=== PATIENT | male | born 1965 | race Caucasian/White ===

== ENCOUNTER 2020-07-07 16:58 | IRF | payer OTHER, SELFPAY ==
[2020-07-07 16:40] VITALS: BP 149/73; PULSE 58; RESP 16; TEMP 36.3; O2SAT 100
--- NOTE | 2020-07-07 16:40 | ADMGEN ---
This patient, Daniel Singh, was admitted to [facility] Room 218-01. Patient/family oriented to hospital policies and general routines including ID bracelet, bed and alarms, visiting hours, pain management, procedures, bathroom and other care routines, personal items, smoking policy, room service/diet, and visiting hours. Information on how to activate the Rapid Response Team has been discussed. Patient/Family are encouraged to report perceived risks to care and to ask questions if they do not understand what they are told or what they should do. Arrived with via private auto alert and oriented to person place and time at [id number]
[2020-07-07 17:13] LABS: Glucose Point of Care 163 (65-105)
[2020-07-07 17:22] VITALS: BMI 23.3
--- NOTE | 2020-07-07 17:26 | WPDREHABHP ---
H&P: HPI History of Present Illness Date/Time: 0HISTORY OF PRESENT ILLNESS: bilateral acute lacunar infarcts and right below-knee amputation The patient's primary rehab impairment category is stroke The etiologic diagnosis is bilateral acute lacunar infarcts and right below-knee amputation I saw this patient [id number] on July 07, 2020] The patient is a patient is a 54-year-old gentleman with past medical history of hypertension, diabetes, with peripheral neuropathy and diabetic retinopathy. Sleep apnea. Diastolic congestive heart failure with ejection fraction of 65-70%, history of osteomyelitis of the right lower extremity, right foot ulcers, peripheral vascular disease, syncope, recent CVA in May 09, presented to [facility] on June 28 after follow-up with Dr. Meyers. Patient had been admitted to [facility] from May 03 through with syncope and was found to have a subacute CVA. He did not receive rehab. The patient underwent angiogram with Dr. Meyers on 06/22/2020 balloon angioplasty to the right middle popliteal artery , right distal popliteal artery, right proximal peroneal artery, and right distal posterior tibialis artery. At the follow-up appointment the patient was noted to have an infection to the right lower extremity with bloody discharge and new skin ulceration. Patient was directly admitted for below-knee amputation and IV antibiotics. Cardiology was consulted for followup non STEMI following a right below-knee amputation. Patient had a mildly elevated troponin and was noted to have an abnormal stress test from March 06, 2020. Echo on 07/01/2020 showed no wall motion abnormality and ejection fraction of 65-70%. Postoperatively the patient experienced new onset dysarthric, head CT scan was negative for hemorrhage. MRI of the brain demonstrated punctate effusions abnormalities in bilateral hemispheres compatible with acute lacunar strokes. Neurology was consulted and the patient was placed on aspirin Plavix and add a statin. Dr. Rosas reports clinical presentation is not supportive a demyelinating process like multiple sclerosis and recommend stroke rehabilitation. The patient has significant stroke risk factors including hypertension diabetes. Carotid ultrasound was unremarkable on May 04 2020. The patient's hospitalization was significant for hypertension electrolyte imbalance leukocytosis acute postoperative pain acute blood loss anemia requiring transfusion, urinary retention with Diaz removal on July 03, 2020, hypoglycemia, hyperglycemia. The patient is nonweightbearing through the right lower extremity and an amputee Shield is in place. Patient will not discharge to rehab on DVT prophylaxis per the Ryder position. Currently patient is only on aspirin. COVID: The patient has not traveled outside the [place] or had contact with someone who is ill that his travel outside the [place] in the past 21 days. The patient has not traveled to an area of the [place] that is experiencing known transmission of the Coronavirus and has not had close personal contact with anyone that has. Patient does not have a fever. The patient is not experiencing lower respiratory illness symptoms. COVID test on 07/07 was negative. Therapy was initiated at the acute care facility and the patient transferred to us from [facility] on 07/07/2020 FALLS OR SURGERIES: The patient has had major surgeries in the 100 days prior to admission. They had 2 falls in the past year. They had falls with injury in the past year. PAST MEDICAL HISTORY: abnormal cardiovascular stress test, bilateral carpal tunnel syndrome, congestive heart failure, diabetes mellitus, right foot ulcer, hypertension, peripheral neuropathy, peripheral vascular disease, diabetic neuropathy, diabetic retinopathy, sleep apnea, CVA. PAST SURGICAL HISTORY: Right 3rd 4th 5th toe amputation on the right on March 07
[2020-07-07 17:30] VITALS: PULSE 58; RESP 16; O2SAT 100
[2020-07-07] MEDS: HYDROcodone/acetaminophen (*CRX) 5-325 MG TABLET 1 TAB PO (18:17)
[2020-07-07] MEDS: DOCUSATE SODIUM 100 MG CAPSULE PO (20:38)
[2020-07-07] MEDS: FAMOTIDINE 20 MG TABLET PO (20:38)
[2020-07-07] MEDS: INSULIN GLARGINE (*BKC) 100 UNITS/ML 45 UNITS SUB-Q (20:42)
[2020-07-07 20:52] VITALS: PULSE 64
[2020-07-07] MEDS: carvediloL 3.125 MG TABLET PO (20:52)
[2020-07-07 21:02] VITALS: BP 135/67; PULSE 54; RESP 18; TEMP 36.6; O2SAT 100
[2020-07-07 21:28] LABS: Glucose Point of Care 260 (65-105)
[2020-07-07 22:21] VITALS: BP 135/67; PULSE 58
[2020-07-07] MEDS: hydrALAZINE 10 MG TABLET PO (22:21)
[2020-07-08 04:50] LABS: Basophils Absolute Auto 0.1 K/mm3 (0.0-0.1); Basophils Percent Auto 0.9 % (0.2-1.2); Eosinophils Absolute Auto 0.2 K/mm3 (0-0.3); Hematocrit 29.6 % (42.0-52.0); Hemoglobin 9.6 g/dL (14.0-18.0); Immature Granulocyte Absolute 0.12 K/mm3 (0.00-0.031); Immature Granulocyte Percent A 1.6 % (0-0.5); Lymphocytes Absolute Auto 2.34 K/mm3 (0.9-3.2); Lymphocytes Percent Auto 30.4 % (18.3-44.2); Mean Corpuscular HGB Conc 32.4 g/dl (32-36); Mean Corpuscular Hemoglobin 26.7 pg (26-34); Mean Corpuscular Volume 82.2 fl (80-100); Mean Platelet Volume 9.2 fl (7.4-10.4); Monocytes Percent Auto 13.5 % (2.6-8.5); Neutrophils Absolute Auto 3.9 K/mm3 (1.3-6.7); Neutrophils Percent Auto 50.6 % (45.5-73.1); Platelet Count Result 489 k/mm3 (150-375); Red Cell Distribution Width 14.3 % (11.5-14.5); White Blood Count 7.7 K/mm3 (4.5-10.0)
[2020-07-08 04:57] LABS: Hemoglobin A1C 6.7 % (<5.7)
[2020-07-08 05:01] LABS: Anion Gap 5 mmol/L (8-16); Blood Urea Nitrogen 24 mg/dL (9-20); Calcium 8.7 mg/dL (8.4-10.2); Carbon Dioxide 31 mmol/L (22-30); Chloride 102 mmol/L (98-107); Estimated CRCL calculation 55 ml/min; Estimated Glomerular Filt Rate 49; Glucose 188 mg/dL (75-110); Potassium 3.6 mmol/L (3.4-5.0); Sodium 138 mmol/L (137-145)
[2020-07-08 05:26] VITALS: BP 139/68; PULSE 57; RESP 16; TEMP 36.2; O2SAT 99
[2020-07-08] MEDS: hydrALAZINE 10 MG TABLET PO ×3 (06:06→21:51)
[2020-07-08 06:47] LABS: Glucose Point of Care 162 (65-105)
--- NOTE | 2020-07-08 08:25 | WPDNEURORHBP ---
Subjective Date/time seen: 07/08/20 08:25 Patient seen on morning rounds. Patient states that he slept well. Patient states stump as essentially no pain. Review of Systems Review of Systems: All systems reviewed & are unremarkable except as noted in HPI and below Exam Narrative: Exam Narrative: Head is normocephalic mild facial asymmetry is noted during fatigue. Speech is less dysarthric from yesterday. Mood is good. Heart rate and rhythm is regular. Lungs are clear to auscultation. Abdomen is soft nontender. Bilateral upper extremity strength are 4-5 left lower extremity strength is 4-5 right stump is in a splint. Labs have been reviewed BUN and creatinine slightly elevated. Mild anemia noted. Objective Data Vital Signs Vital Signs: Vital Signs - 24 hr 07/07/20 16:40 07/07/20 17:30 07/07/20 20:52 Temperature 36.3 C L Pulse Rate 58 L 58 L 64 Respiratory Rate 16 16 Blood Pressure 149/73 H Pulse Oximetry 100 100 07/07/20 21:02 07/07/20 22:21 07/08/20 05:26 Temperature 36.6 C 36.2 C L Pulse Rate 54 L 58 L 57 L Respiratory Rate 18 16 Blood Pressure 135/67 135/67 139/68 Pulse Oximetry 100 99 Meds/Results Medications: Active Medications Generic Name Dose Route Start Last Admin Trade Name Freq PRN Reason Stop Dose Admin Hydrocodone Bitart/Acetaminophen 1 tab 07/07/20 17:52 07/07/20 18:17 Hydrocodone/Acetaminophen (*Crx) 5-325 Mg Tablet PO 1 tab Q4H PRN Administration Pain (Scale Score 4-6) Amlodipine Besylate 5 mg 07/08/20 09:00 Amlodipine Besylate 5 Mg Tablet PO DAILY KATYA Aspirin 81 mg 07/08/20 09:00 Aspirin 81 Mg Chewable Tablet PO DAILY KATYA Atorvastatin Calcium 40 mg 07/08/20 09:00 Atorvastatin 40 Mg Tablet PO DAILY KATYA Carvedilol 3.125 mg 07/07/20 21:00 07/07/20 20:52 Carvedilol 3.125 Mg Tablet PO 3.125 mg Q12H KATYA Administration Dextrose 12.5 gm 07/07/20 17:49 Dextrose 50% 25 Gm/50 Ml Syringe IV PUSH PRN PRN Hypoglycemia Protocol Docusate Sodium 100 mg 07/07/20 21:00 07/07/20 20:38 Docusate Sodium 100 Mg Capsule PO 100 mg Q12HR KATYA Administration Famotidine 20 mg 07/07/20 21:00 07/07/20 20:38 Famotidine 20 Mg Tablet PO 20 mg Q12H KATYA Administration Glucagon 1 mg 07/07/20 17:49 Glucagon For Inj 1 Mg Vial IM PRN PRN Hypoglycemia Protocol Glucose 15 gm 07/07/20 17:49 Glucose Oral Gel 15 Gm Of Glucse In 37.5 Gm Tube PO PRN PRN Hypoglycemia Protocol Hydralazine HCl 10 mg 07/07/20 22:00 07/08/20 06:06 Hydralazine 10 Mg Tablet PO 10 mg Q8H KATYA Administration Dextrose 1,000 mls @ 100 mls/hr 07/07/20 17:49 Dextrose 5% 1,000 Ml IVPB PRN PRN Hypoglycemia Protocol Insulin Aspart 2 - 5 units 07/08/20 08:00 Insulin Aspart (*Bkc) 100 Units/Ml SUB-Q TIDWM [facility] Protocol Insulin Glargine 45 units 07/07/20 21:00 07/07/20 20:42 Insulin Glargine (*Bkc) 100 Units/Ml SUB-Q 45 units HS KATYA Administration Losartan Potassium 100 mg 07/08/20 09:00 Losartan Potassium 100 Mg Tablet PO DAILY [facility] Labs Labs: Laboratory Results - last 24 hr 07/07/20 07/07/20 07/08/20 17:10 20:40 04:26 WBC 7.7 RBC 3.60 L Hgb 9.6 L Hct 29.6 L MCV 82.2 MCH 26.7 MCHC 32.4 RDW 14.3 Plt Count 489 H MPV 9.2 Immature Gran % (Auto) 1.6 H Neut % (Auto) 50.6 Lymph % (Auto) 30.4 Bledsoe % (Auto) 13.5 H Eos % (Auto) 3.0 Baso % (Auto) 0.9 Lymph # (Auto) 2.34 Bledsoe # (Auto) 1.0 H Eos # (Auto) 0.2 Baso # (Auto) 0.1 Abs Immat Gran (auto) 0.12 H Absolute Neuts (auto) 3.9 Absolute Nucleated RBC 0.0 Nucleated RBC % 0.0 Sodium Potassium Chloride Carbon Dioxide Anion Gap BUN Creatinine Estim Creat Clear Calc Estimated GFR Glucose POC Capillary Glucose 163 H 260 H Hemoglobin A1c Calcium
[2020-07-08 08:28] VITALS: PULSE 57
[2020-07-08] MEDS: DOCUSATE SODIUM 100 MG CAPSULE PO ×2 (08:28→19:58)
[2020-07-08] MEDS: ATORVASTATIN 40 MG TABLET PO (08:28)
[2020-07-08] MEDS: ASPIRIN 81 MG CHEWABLE TABLET PO (08:28)
[2020-07-08] MEDS: amLODIPine BESYLATE 5 MG TABLET PO (08:28)
[2020-07-08] MEDS: FAMOTIDINE 20 MG TABLET PO ×2 (08:28→19:59)
[2020-07-08] MEDS: carvediloL 3.125 MG TABLET PO ×2 (08:28→19:58)
[2020-07-08] MEDS: LOSARTAN POTASSIUM 100 MG TABLET PO (08:29)
[2020-07-08 12:14] LABS: Glucose Point of Care 159 (65-105)
[2020-07-08 14:00] VITALS: BP 125/66; PULSE 62; RESP 20; TEMP 36.2; O2SAT 100
[2020-07-08 17:19] LABS: Glucose Point of Care 175 (65-105)
[2020-07-08 19:58] VITALS: PULSE 68
[2020-07-08 21:05] VITALS: BP 135/62; PULSE 64; RESP 18; TEMP 36.9; O2SAT 99
[2020-07-08 21:14] LABS: Glucose Point of Care 126 (65-105)
[2020-07-08 21:51] VITALS: BP 142/64; PULSE 59
[2020-07-09] VITALS (7 sets, daily range): BP systolic 129–144; BP diastolic 63–69; PULSE 60–64; RESP 18–20; TEMP 36.5–36.8; O2SAT 97–100
--- NOTE | 2020-07-09 03:54 | PC.NURSE ---
Daylight Savings Time For Daylight Savings Time Ending in the Fall - Clocks are moved back. For Daylight Savings Time Beginning in the Spring - Clocks are moved ahead. For [facility], the time of change occurs at 0200 hrs. Time is taken from the server administrator. This entry on the patient's chart recognizes the change in time reflected during documentation. Example: 2 entries for vital signs may be charted for 0200 hrs.
[2020-07-09] MEDS: hydrALAZINE 10 MG TABLET PO ×3 (06:10→21:55)
[2020-07-09 06:38] LABS: Glucose Point of Care 162 (65-105)
[2020-07-09] MEDS: FAMOTIDINE 20 MG TABLET PO ×2 (08:01→20:26)
[2020-07-09] MEDS: DOCUSATE SODIUM 100 MG CAPSULE PO ×2 (08:01→20:26)
[2020-07-09] MEDS: ATORVASTATIN 40 MG TABLET PO (08:01)
[2020-07-09] MEDS: ASPIRIN 81 MG CHEWABLE TABLET PO (08:01)
[2020-07-09] MEDS: LOSARTAN POTASSIUM 100 MG TABLET PO (09:20)
[2020-07-09] MEDS: carvediloL 3.125 MG TABLET PO ×2 (09:20→20:26)
[2020-07-09] MEDS: amLODIPine BESYLATE 5 MG TABLET PO (09:20)
--- NOTE | 2020-07-09 10:00 | WPDNEURORHBP ---
Subjective Date/time seen: 07/09/20 10:00Patient voices no complaints. Patient is asking questions regarding length of stay. Patient's family is currently moving from their old home to a new home. Review of Systems Review of Systems: All systems reviewed & are unremarkable except as noted in HPI and below Functional Status Ambulation Ability Ability to Ambulate 10 Feet: Minimum Assistance X 1 Ambulation Assistive Devices: Walker, Wheeled Transfers Ability Ability to Transfer In/Out of Chair: Minimum Assistance X 1 Exam Narrative: Exam Narrative: Mild facial asymmetry is noted. Extraocular muscles are intact. Neck is supple. Heart rate and rhythm is regular. Lungs are clear. Abdomen is soft nontender. Upper extremity strength are 4-5 left lower extremity strength is 4/5. Right lower extremity is in a splint. Incision was not viewed. Function: Patient is at min assist with transfers. Objective Data Vital Signs Vital Signs: Vital Signs - 24 hr 07/08/20 14:00 07/08/20 19:58 07/08/20 21:05 Temperature 36.2 C L 36.9 C Pulse Rate 62 68 64 Respiratory Rate 20 18 Blood Pressure 125/66 135/62 Pulse Oximetry 100 99 07/08/20 21:51 07/09/20 04:30 07/09/20 06:10 Temperature 36.7 C Pulse Rate 59 L 60 60 Respiratory Rate 18 Blood Pressure 142/64 H 144/65 H 129/63 Pulse Oximetry 100 07/09/20 09:20 Temperature Pulse Rate 60 Respiratory Rate Blood Pressure Pulse Oximetry Intake/Output Intake/Output: Intake & Output 07/06/20 07/07/20 07/08/20 07/10/20 23:59 23:59 23:59 00:59 Intake Total 480 Balance 480 Meds/Results Medications: Active Medications Generic Name Dose Route Start Last Admin Trade Name Freq PRN Reason Stop Dose Admin Hydrocodone Bitart/Acetaminophen 1 tab 07/07/20 17:52 07/07/20 18:17 Hydrocodone/Acetaminophen (*Crx) 5-325 Mg Tablet PO 1 tab Q4H PRN Administration Pain (Scale Score 4-6) Amlodipine Besylate 5 mg 07/08/20 09:00 07/09/20 09:20 Amlodipine Besylate 5 Mg Tablet PO 5 mg DAILY KATYA Administration Aspirin 81 mg 07/08/20 09:00 07/09/20 08:01 Aspirin 81 Mg Chewable Tablet PO 81 mg DAILY KATYA Administration Atorvastatin Calcium 40 mg 07/08/20 09:00 07/09/20 08:01 Atorvastatin 40 Mg Tablet PO 40 mg DAILY KATYA Administration Carvedilol 3.125 mg 07/07/20 21:00 07/09/20 09:20 Carvedilol 3.125 Mg Tablet PO 3.125 mg Q12H KATYA Administration Dextrose 12.5 gm 07/07/20 17:49 Dextrose 50% 25 Gm/50 Ml Syringe IV PUSH PRN PRN Hypoglycemia Protocol Docusate Sodium 100 mg 07/07/20 21:00 07/09/20 08:01 Docusate Sodium 100 Mg Capsule PO 100 mg Q12HR KATYA Administration Famotidine 20 mg 07/07/20 21:00 07/09/20 08:01 Famotidine 20 Mg Tablet PO 20 mg Q12H KATYA Administration Glucagon 1 mg 07/07/20 17:49 Glucagon For Inj 1 Mg Vial IM PRN PRN Hypoglycemia Protocol Glucose 15 gm 07/07/20 17:49 Glucose Oral Gel 15 Gm Of Glucse In 37.5 Gm Tube PO PRN PRN Hypoglycemia Protocol Hydralazine HCl 10 mg 07/07/20 22:00 07/09/20 06:10 Hydralazine 10 Mg Tablet PO 10 mg Q8H KATYA Administration Dextrose 1,000 mls @ 100 mls/hr 07/07/20 17:49 Dextrose 5% 1,000 Ml IVPB PRN PRN Hypoglycemia Protocol Insulin Aspart 2 - 5 units 07/08/20 08:00 07/09/20 07:39 Insulin Aspart (*Bkc) 100 Units/Ml SUB-Q Not Given TIDWM [facility] Protocol Insulin Glargine 40 units 07/09/20 21:00 Insulin Glargine (*Bkc) 100 Units/Ml SUB-Q HS [facility] Losartan Potassium 100 mg 07/08/20 09:00 07/09/20 09:20 Losartan Potassium 100 Mg Tablet PO 100 mg DAILY KATYA Administration Labs Labs: Laboratory Results - last 24 hr 07/08/20 07/08/20 07/08/20 12:06 17:07 20:01 POC Capillary Glucose 159 H 175 H 126 H 07/09/20 06:15 POC Capillary Glucose 162 H Progress Note: A&P Assessment and Plan
[2020-07-09 11:21] LABS: Glucose Point of Care 169 (65-105)
[2020-07-09 16:25] LABS: Glucose Point of Care 158 (65-105)
[2020-07-09] MEDS: polyethylene glycoL 3350 17 GM POWD.PACK PO (17:15)
[2020-07-09] MEDS: INSULIN GLARGINE (*BKC) 100 UNITS/ML 40 UNITS SUB-Q (20:26)
[2020-07-09 20:40] LABS: Glucose Point of Care 172 (65-105)
[2020-07-10] MEDS: hydrALAZINE 10 MG TABLET PO ×3 (05:51→21:28)
[2020-07-10] MEDS: polyethylene glycoL 3350 17 GM POWD.PACK PO ×2 (05:52→17:53)
[2020-07-10 06:00] VITALS: BP 134/67; PULSE 57; RESP 16; TEMP 36.1; O2SAT 99
[2020-07-10 06:24] LABS: Glucose Point of Care 149 (65-105)
[2020-07-10 09:20] VITALS: PULSE 57
[2020-07-10] MEDS: FAMOTIDINE 20 MG TABLET PO ×2 (09:20→20:08)
[2020-07-10] MEDS: ATORVASTATIN 40 MG TABLET PO (09:20)
[2020-07-10] MEDS: LOSARTAN POTASSIUM 100 MG TABLET PO (09:20)
[2020-07-10] MEDS: carvediloL 3.125 MG TABLET PO ×2 (09:20→20:07)
[2020-07-10] MEDS: DOCUSATE SODIUM 100 MG CAPSULE PO ×2 (09:21→20:08)
[2020-07-10] MEDS: ASPIRIN 81 MG CHEWABLE TABLET PO (09:21)
[2020-07-10] MEDS: amLODIPine BESYLATE 5 MG TABLET PO (09:22)
[2020-07-10 12:10] LABS: Glucose Point of Care 258 (65-105)
--- NOTE | 2020-07-10 12:12 | WPDNEURORHBP ---
Subjective Date/time seen: 07/10/20 12:12 Patient denies pain to the right stump. Patient voices no other complaints Review of Systems Review of Systems: All systems reviewed & are unremarkable except as noted in HPI and below Functional Status Ambulation Ability Ability to Ambulate 10 Feet: Contact Guard Ability to Ambulate 50 Feet With 2 Turns: Contact Guard Ambulation Assistive Devices: Walker, Wheeled Transfers Ability Ability to Transfer In/Out of Chair: Minimum Assistance X 1 Exam Narrative: Exam Narrative: head is normocephalic. Extraocular muscles are intact. Neck is supple. Speech is less dysarthric. Patient demonstrates better insight. Heart rate and rhythm is regular. Lungs are clear. Abdomen is soft. Upper extremity strength are 5/5 left lower extremity strength is 5/5 . Incision shows good approximation no drainage is noted minimal erythema is present. Objective Data Vital Signs Vital Signs: Vital Signs - 24 hr 07/09/20 14:00 07/09/20 19:49 07/09/20 20:00 Temperature 36.5 C 36.8 C Pulse Rate 64 60 60 Respiratory Rate 20 18 18 Blood Pressure 136/69 143/64 H Pulse Oximetry 97 100 100 07/09/20 20:26 07/10/20 06:00 07/10/20 09:20 Temperature 36.1 C L Pulse Rate 60 57 L 57 L Respiratory Rate 16 Blood Pressure 134/67 Pulse Oximetry 99 Intake/Output Intake/Output: Intake & Output 07/07/20 07/08/20 07/09/20 07/10/20 22:59 22:59 23:59 23:59 Intake Total 480 Balance 480 Meds/Results Medications: Active Medications Generic Name Dose Route Start Last Admin Trade Name Freq PRN Reason Stop Dose Admin Hydrocodone Bitart/Acetaminophen 1 tab 07/07/20 17:52 07/07/20 18:17 Hydrocodone/Acetaminophen (*Crx) 5-325 Mg Tablet PO 1 tab Q4H PRN Administration Pain (Scale Score 4-6) Amlodipine Besylate 5 mg 07/08/20 09:00 07/10/20 09:22 Amlodipine Besylate 5 Mg Tablet PO 5 mg DAILY KATYA Administration Aspirin 81 mg 07/08/20 09:00 07/10/20 09:21 Aspirin 81 Mg Chewable Tablet PO 81 mg DAILY KATYA Administration Atorvastatin Calcium 40 mg 07/08/20 09:00 07/10/20 09:20 Atorvastatin 40 Mg Tablet PO 40 mg DAILY KATYA Administration Carvedilol 3.125 mg 07/07/20 21:00 07/10/20 09:20 Carvedilol 3.125 Mg Tablet PO 3.125 mg Q12H KATYA Administration Dextrose 12.5 gm 07/07/20 17:49 Dextrose 50% 25 Gm/50 Ml Syringe IV PUSH PRN PRN Hypoglycemia Protocol Docusate Sodium 100 mg 07/07/20 21:00 07/10/20 09:21 Docusate Sodium 100 Mg Capsule PO 100 mg Q12HR KATYA Administration Famotidine 20 mg 07/07/20 21:00 07/10/20 09:20 Famotidine 20 Mg Tablet PO 20 mg Q12H KATYA Administration Glucagon 1 mg 07/07/20 17:49 Glucagon For Inj 1 Mg Vial IM PRN PRN Hypoglycemia Protocol Glucose 15 gm 07/07/20 17:49 Glucose Oral Gel 15 Gm Of Glucse In 37.5 Gm Tube PO PRN PRN Hypoglycemia Protocol Hydralazine HCl 10 mg 07/07/20 22:00 07/10/20 05:51 Hydralazine 10 Mg Tablet PO 10 mg Q8H KATYA Administration Dextrose 1,000 mls @ 100 mls/hr 07/07/20 17:49 Dextrose 5% 1,000 Ml IVPB PRN PRN Hypoglycemia Protocol Insulin Aspart 2 - 5 units 07/08/20 08:00 07/10/20 08:14 Insulin Aspart (*Bkc) 100 Units/Ml SUB-Q Not Given TIDWM [facility] Protocol Insulin Glargine 44 units 07/10/20 21:00 Insulin Glargine (*Bkc) 100 Units/Ml SUB-Q HS [facility] Losartan Potassium 100 mg 07/08/20 09:00 07/10/20 09:20 Losartan Potassium 100 Mg Tablet PO 100 mg DAILY KATYA Administration Polyethylene Glycol 17 gm 07/09/20 18:00 07/10/20 05:52 Polyethylene Glycol 3350 17 Gm Powd.Pack PO 17 gm Q12H KATYA Administration Labs Labs: Laboratory Results - last 24 hr 07/09/20 07/09/20 07/10/20 16:21 20:23 06:11 POC Capillary Glucose 158 H 172 H 149 H 07/10/20 11:55 POC Capillary Glucose 258 H Progress Note: A&P
[2020-07-10] MEDS: INSULIN ASPART (*BKC) 100 UNITS/ML SUB-Q ×2 (12:13→17:53)
[2020-07-10 13:26] VITALS: BMI 23.3
[2020-07-10 14:00] VITALS: BP 123/58; PULSE 56; RESP 18; TEMP 35.8; O2SAT 100
--- NOTE | 2020-07-10 15:54 | RPD ---
INDIVIDUALIZED PLAN OF CARE FOR Daniel Singh Brief Synthesis of Pre-Admission Screen, Post-Admission Evaluation and Therapy Evaluations: The patient presents to rehab with bilateral acute lacunar infarcts. Comorbidities include right lower extremity critical limb ischemia with infection, s/p right BKA, hypertension, diabetes mellitus, obstructive sleep apnea, neuropathy, diastolic congestive heart failure, osteomyelitis, mild dysarthria, generalized weakness, anemia, dyslipidemia, orthostatic hypotension, peripheral vascular disease, syncope. The patient requires physician services for medical oversight, management of post-op complications in the setting of present comorbidities, management of diabetes mellitus diagnosis, and pain management. Post-op complications have included dysarthria, electrolyte imbalances, acute blood loss anemia requiring transfusion, leukocytosis, elevated troponins, and urinary retention. The patient requires nursing services for anticoagulation therapy, diabetes training, DVT prophylactics, infection protection, medication management and education, pressure relief, and wound care. The patient will be taught how to wrap the residual limb and how to monitor their skin for promotion of healing. Deficits include: ADLs, Balance, Endurance, Mobility, Pain Management, ROM, Safety, Speech, Strength, Transfers Horticulture Professor/Case Management for: Discharge Planning and Patient/Family Counseling Physical Therapy: 5 days per week for 75 minutes. Treatments may include: Therapeutic Exercise, Gait Training, Neuromuscular Re-education, Transfer Training, Community Reintegration, Bed Mobility, Patient/Family Education, Wheelchair Mobility Group Therapy/Concurrent Therapy Rationales: -Improve attention span during functional activities in a distracted environment. -Enhance problem solving and/or adequate judgment skills during functional activities in a distracted environment. -Promote increased safety awareness in a distracted environment to reduce fall risk with functional tasks, transfers, and ambulation to allow a more safe, self-sufficient return to the home environment. -Improve dynamic balance skills to promote safety and independence with functional activities in a distracted environment for maximum gain. Occupational Therapy: 5 days per week for 75 minutes. Treatments may include: Therapeutic Exercise, Therapeutic Activity, Cognitive Training, Self-Care Transfer Training, Community Reintegration, Home Management, Patient/Family Education, Wheelchair Mobility Training, Energy Conservation Training Group Therapy/Concurrent Therapy Rationales: -Allow therapist to observe and teach generalization and carry-over of skills learned in individual therapy. -Enhance problem solving and sequencing skills during therapeutic activities in a distracted environment. -Promote increased safety awareness in a realistic setting to reduce fall risk with functional tasks due to visual and verbal distractions. -Increase functional level with ADLs, ADL transfers and use of adaptive equipment through therapeutic activities with others while promoting safety to allow a more safe, self-sufficient return home. Speech Therapy: 5 days per week for 30 minutes. Treatments may include: Dysphasia Therapy, Speech/Language/Communication Therapy, Cognitive Training, Patient/Family Education Group Therapy/Concurrent Therapy - Rationale: -Allow therapist to observe and teach generalization and carry-over of skills learned in individual therapy. -Improve comprehension skills with complex or abstract ideas through discussion in a realistic setting. -Enhance problem solving skills with complex issues during activities in a distracted environment. -Promote increased memory skills and concentration in a distracted environment for a safe transition home. -Improve attention and focus with language/communication skills in a realistic and supportive therapeutic setting. -Allow for pract
[2020-07-10 17:09] LABS: Glucose Point of Care 205 (65-105)
[2020-07-10 20:00] VITALS: PULSE 64; RESP 18; O2SAT 100
[2020-07-10 20:03] LABS: Glucose Point of Care 276 (65-105)
[2020-07-10 20:07] VITALS: PULSE 64
[2020-07-10] MEDS: INSULIN GLARGINE (*BKC) 100 UNITS/ML 44 UNITS SUB-Q (20:08)
[2020-07-10 21:47] VITALS: BP 163/75; PULSE 63; RESP 16; TEMP 37.1; O2SAT 99
[2020-07-11] MEDS: polyethylene glycoL 3350 17 GM POWD.PACK PO ×2 (05:52→17:06)
[2020-07-11] MEDS: hydrALAZINE 10 MG TABLET PO ×3 (05:52→20:32)
[2020-07-11 06:00] VITALS: BP 154/71; PULSE 58; RESP 16; TEMP 36.8; O2SAT 100
[2020-07-11 06:25] LABS: Glucose Point of Care 165 (65-105)
[2020-07-11] MEDS: DOCUSATE SODIUM 100 MG CAPSULE PO ×2 (09:41→20:32)
[2020-07-11] MEDS: amLODIPine BESYLATE 5 MG TABLET PO (09:41)
[2020-07-11 09:42] VITALS: PULSE 58
[2020-07-11] MEDS: carvediloL 3.125 MG TABLET PO ×2 (09:42→20:30)
[2020-07-11] MEDS: ASPIRIN 81 MG CHEWABLE TABLET PO (09:42)
[2020-07-11] MEDS: ATORVASTATIN 40 MG TABLET PO (09:42)
[2020-07-11] MEDS: LOSARTAN POTASSIUM 100 MG TABLET PO (09:42)
[2020-07-11] MEDS: FAMOTIDINE 20 MG TABLET PO ×2 (09:42→20:32)
[2020-07-11 12:03] LABS: Glucose Point of Care 257 (65-105)
[2020-07-11] MEDS: INSULIN ASPART (*BKC) 100 UNITS/ML SUB-Q (12:04)
--- NOTE | 2020-07-11 13:30 | WPDNEURORHBP ---
Subjective Date/time seen: 07/11/20 13:30 Patient voices no complaints. Patient denies stump pain. Patient is eager to return home. Review of Systems Review of Systems: All systems reviewed & are unremarkable except as noted in HPI and below Functional Status Ambulation Ability Ability to Ambulate 10 Feet: Contact Guard Ability to Ambulate 50 Feet With 2 Turns: Contact Guard Ambulation Assistive Devices: Walker, Wheeled Transfers Ability Ability to Transfer In/Out of Chair: Minimum Assistance X 1 Exam Narrative: Exam Narrative: Head is normocephalic external ocular muscles are intact neck is supple lungs are clear to auscultation abdomen soft nontender bilateral upper extremity strengths are 5/5 left lower extremity strength is 5/5 right stump is not tested patient requires min assist for 3 steps. Patient requires min assist to roller picker objects. Vocal quality has increased in wellness. Cognitive eval is pending. Objective Data Vital Signs Vital Signs: Vital Signs - 24 hr 07/10/20 14:00 07/10/20 20:00 07/10/20 20:07 Temperature 35.8 C L Pulse Rate 56 L 64 64 Respiratory Rate 18 18 Blood Pressure 123/58 L Pulse Oximetry 100 100 07/10/20 21:47 07/11/20 06:00 07/11/20 09:42 Temperature 37.1 C 36.8 C Pulse Rate 63 58 L 58 L Respiratory Rate 16 16 Blood Pressure 163/75 H 154/71 H Pulse Oximetry 99 100 Intake/Output Intake/Output: Intake & Output 07/08/20 07/09/20 07/10/20 07/11/20 22:59 23:59 23:59 23:59 Intake Total 1200 480 Balance 1200 480 Meds/Results Medications: Active Medications Generic Name Dose Route Start Last Admin Trade Name Freq PRN Reason Stop Dose Admin Hydrocodone Bitart/Acetaminophen 1 tab 07/07/20 17:52 07/07/20 18:17 Hydrocodone/Acetaminophen (*Crx) 5-325 Mg Tablet PO 1 tab Q4H PRN Administration Pain (Scale Score 4-6) Amlodipine Besylate 5 mg 07/08/20 09:00 07/11/20 09:41 Amlodipine Besylate 5 Mg Tablet PO 5 mg DAILY KATYA Administration Aspirin 81 mg 07/08/20 09:00 07/11/20 09:42 Aspirin 81 Mg Chewable Tablet PO 81 mg DAILY KATYA Administration Atorvastatin Calcium 40 mg 07/08/20 09:00 07/11/20 09:42 Atorvastatin 40 Mg Tablet PO 40 mg DAILY KATYA Administration Carvedilol 3.125 mg 07/07/20 21:00 07/11/20 09:42 Carvedilol 3.125 Mg Tablet PO 3.125 mg Q12H KATYA Administration Dextrose 12.5 gm 07/07/20 17:49 Dextrose 50% 25 Gm/50 Ml Syringe IV PUSH PRN PRN Hypoglycemia Protocol Docusate Sodium 100 mg 07/07/20 21:00 07/11/20 09:41 Docusate Sodium 100 Mg Capsule PO 100 mg Q12HR KATYA Administration Famotidine 20 mg 07/07/20 21:00 07/11/20 09:42 Famotidine 20 Mg Tablet PO 20 mg Q12H KATYA Administration Glucagon 1 mg 07/07/20 17:49 Glucagon For Inj 1 Mg Vial IM PRN PRN Hypoglycemia Protocol Glucose 15 gm 07/07/20 17:49 Glucose Oral Gel 15 Gm Of Glucse In 37.5 Gm Tube PO PRN PRN Hypoglycemia Protocol Hydralazine HCl 10 mg 07/07/20 22:00 07/11/20 05:52 Hydralazine 10 Mg Tablet PO 10 mg Q8H KATYA Administration Dextrose 1,000 mls @ 100 mls/hr 07/07/20 17:49 Dextrose 5% 1,000 Ml IVPB PRN PRN Hypoglycemia Protocol Insulin Aspart 2 - 5 units 07/08/20 08:00 07/11/20 12:04 Insulin Aspart (*Bkc) 100 Units/Ml SUB-Q 3 units TIDWM KATYA Administration Protocol Insulin Glargine 44 units 07/10/20 21:00 07/10/20 20:08 Insulin Glargine (*Bkc) 100 Units/Ml SUB-Q 44 units HS KATYA Administration Losartan Potassium 100 mg 07/08/20 09:00 07/11/20 09:42 Losartan Potassium 100 Mg Tablet PO 100 mg DAILY KATYA Administration Polyethylene Glycol 17 gm 07/09/20 18:00 07/11/20 05:52 Polyethylene Glycol 3350 17 Gm Powd.Pack PO 17 gm Q12H KATYA Administration Labs Labs: Laboratory Results - last 24 hr 07/10/20 07/10/20 07/11/20 17:02 20:01 05:51 POC [place]
[2020-07-11 14:00] VITALS: BP 148/69; PULSE 61; RESP 20; TEMP 36.8; O2SAT 97
--- NOTE | 2020-07-11 14:44 | PCPTNOTE ---
Kandy Eaton PT completed an inpatient rehab wheelchair evaluation on Daniel Singh on 07/11/2020. The patient is unable to safely and independently ambulate household distances due to their current impairments. Their diagnosis is Rt. BKA and their impairments include decreased strength, decreased endurance, decreased range of motion, decreased balance, and bilateral lower extremity weakness. Mr. Singh's weight bearing status is non-weight bearing on R lower extremity. The patient demonstrates significant functional mobility limitations that impair their ability to participate in mobility-related activities of daily living (MRADLs), including toileting, feeding, dressing, grooming, and bathing in the customary locations in the home. These limitations cannot be sufficiently resolved by the use of an appropriately fitted cane or walker. It is recommended that the patient utilize a wheelchair for functional mobility within the home in order to facilitate optimal safety, independence and participation in all MRADL's and adequately access their home environment on a regular basis. The patient's home provides adequate access between rooms, maneuvering space, and surfaces to accommodate the recommended wheelchair. The use of a wheelchair for functional mobility is strongly recommended and the patient is receptive to using the wheelchair. The use of this wheelchair will significantly improve the patient's ability to participate in MRADLS and the patient will use it on a regular basis in the home. This will facilitate optimal safety, independence, and participation. The patient has demonstrated sufficient physical and mental capabilities needed to safely propel a manual wheelchair that is provided in the home during a typical day. Recommended Wheelchair Frame: standard Recommended Wheelchair Size: 18x18 Recommended Wheelchair Cushion: standard Wheelchair Leg Recommendations: - Right residual limb support -Anti-tippers are recommended due to patient demonstrating increased risk for falls. They would benefit from anti-tippers with added safety and stabilization. Kandy Eaton DPT Evaluating Therapist Date: 07/11/20 I agree with and certify that the above recommendation is medically necessary. Referring Physician Date I agree with and certify that the above recommendation is medically necessary. Referring Physician Date
[2020-07-11 16:53] LABS: Glucose Point of Care 152 (65-105)
[2020-07-11 19:50] VITALS: PULSE 64; RESP 20; O2SAT 97
[2020-07-11] MEDS: INSULIN GLARGINE (*BKC) 100 UNITS/ML 44 UNITS SUB-Q (20:25)
[2020-07-11 20:30] VITALS: PULSE 64
[2020-07-11 21:16] LABS: Glucose Point of Care 210 (65-105)
[2020-07-11 22:00] VITALS: BP 149/67; PULSE 58; RESP 16; TEMP 36.9; O2SAT 100
[2020-07-12 05:38] VITALS: BP 141/70; PULSE 58; RESP 16; TEMP 36.7; O2SAT 98
[2020-07-12] MEDS: hydrALAZINE 10 MG TABLET PO ×3 (05:39→23:45)
[2020-07-12] MEDS: polyethylene glycoL 3350 17 GM POWD.PACK PO ×2 (05:39→17:12)
[2020-07-12 06:03] LABS: Glucose Point of Care 140 (65-105)
[2020-07-12 08:33] VITALS: PULSE 58
[2020-07-12] MEDS: FAMOTIDINE 20 MG TABLET PO ×2 (08:33→20:56)
[2020-07-12] MEDS: carvediloL 3.125 MG TABLET PO ×2 (08:33→20:55)
[2020-07-12] MEDS: DOCUSATE SODIUM 100 MG CAPSULE PO ×2 (08:33→20:56)
[2020-07-12] MEDS: amLODIPine BESYLATE 5 MG TABLET PO (08:33)
[2020-07-12] MEDS: ASPIRIN 81 MG CHEWABLE TABLET PO (08:33)
[2020-07-12] MEDS: LOSARTAN POTASSIUM 100 MG TABLET PO (08:33)
[2020-07-12] MEDS: ATORVASTATIN 40 MG TABLET PO (08:33)
--- NOTE | 2020-07-12 09:47 | WPDNEURORHBP ---
Subjective Date/time seen: 07/12/20 09:47 54-year-old gentleman with past medical history of hypertension, diabetes, peripheral neuropathy, diabetic neuropathy who underwent a right below-knee amputation. Hospital course was complicated with bilateral acute lacunar infarcts. Non STEMI, electrolyte imbalance, leukocytosis, acute postop pain, acute blood loss anemia, urinary retention with Diaz placed now patient is voiding on his own. Hypo and hyperglycemia . Patient voices no stump pain or phantom pain during the exam. Blood sugars have been fluctuating but are down trending Review of Systems Review of Systems: All systems reviewed & are unremarkable except as noted in HPI and below Functional Status Ambulation Ability Ability to Ambulate 10 Feet: Contact Guard Ability to Ambulate 50 Feet With 2 Turns: Contact Guard Ambulation Assistive Devices: Walker, Wheeled Transfers Ability Ability to Transfer In/Out of Chair: Minimum Assistance X 1 Exam Narrative: Exam Narrative: Patient was seen during physical therapy for performing stairs training. Head is normocephalic Extraocular muscles are intact. Neck is supple. Heart rate and rhythm is regular lungs are clear to auscultation. Abdomen is soft nontender. Bilateral upper extremity strength are 4+ out of 5 left lower extremity strength is 4+ out of 5 right BKA was not tested during this exam. Incision was not viewed during this exam. Objective Data Vital Signs Vital Signs: Vital Signs - 24 hr 07/11/20 14:00 07/11/20 19:50 07/11/20 20:30 Temperature 36.8 C Pulse Rate 61 64 64 Respiratory Rate 20 20 Blood Pressure 148/69 H Pulse Oximetry 97 97 07/11/20 22:00 07/12/20 05:38 07/12/20 08:33 Temperature 36.9 C 36.7 C Pulse Rate 58 L 58 L 58 L Respiratory Rate 16 16 Blood Pressure 149/67 H 141/70 H Pulse Oximetry 100 98 Intake/Output Intake/Output: Intake & Output 07/09/20 07/10/20 07/11/20 07/12/20 23:59 23:59 23:59 23:59 Intake Total 1200 720 240 Balance 1200 720 240 Meds/Results Medications: Active Medications Generic Name Dose Route Start Last Admin Trade Name Freq PRN Reason Stop Dose Admin Hydrocodone Bitart/Acetaminophen 1 tab 07/07/20 17:52 07/07/20 18:17 Hydrocodone/Acetaminophen (*Crx) 5-325 Mg Tablet PO 1 tab Q4H PRN Administration Pain (Scale Score 4-6) Amlodipine Besylate 5 mg 07/08/20 09:00 07/12/20 08:33 Amlodipine Besylate 5 Mg Tablet PO 5 mg DAILY KATYA Administration Aspirin 81 mg 07/08/20 09:00 07/12/20 08:33 Aspirin 81 Mg Chewable Tablet PO 81 mg DAILY KATYA Administration Atorvastatin Calcium 40 mg 07/08/20 09:00 07/12/20 08:33 Atorvastatin 40 Mg Tablet PO 40 mg DAILY KATYA Administration Carvedilol 3.125 mg 07/07/20 21:00 07/12/20 08:33 Carvedilol 3.125 Mg Tablet PO 3.125 mg Q12H KATYA Administration Dextrose 12.5 gm 07/07/20 17:49 Dextrose 50% 25 Gm/50 Ml Syringe IV PUSH PRN PRN Hypoglycemia Protocol Docusate Sodium 100 mg 07/07/20 21:00 07/12/20 08:33 Docusate Sodium 100 Mg Capsule PO 100 mg Q12HR KATYA Administration Famotidine 20 mg 07/07/20 21:00 07/12/20 08:33 Famotidine 20 Mg Tablet PO 20 mg Q12H KATYA Administration Glucagon 1 mg 07/07/20 17:49 Glucagon For Inj 1 Mg Vial IM PRN PRN Hypoglycemia Protocol Glucose 15 gm 07/07/20 17:49 Glucose Oral Gel 15 Gm Of Glucse In 37.5 Gm Tube PO PRN PRN Hypoglycemia Protocol Hydralazine HCl 10 mg 07/07/20 22:00 07/12/20 05:39 Hydralazine 10 Mg Tablet PO 10 mg Q8H KATYA Administration Dextrose 1,000 mls @ 100 mls/hr 07/07/20 17:49 Dextrose 5% 1,000 Ml IVPB PRN PRN Hypoglycemia Protocol Insulin Aspart 2 - 5 units 07/08/20 08:00 07/12/20 07:40 Insulin Aspart (*Bkc) 100 Units/Ml SUB-Q Not Given TIDWM KATYA Protocol Insulin Glargine 44 units 07/10/20 21:00 07/11/20 20:25 Ins
[2020-07-12 12:20] LABS: Glucose Point of Care 217 (65-105)
[2020-07-12] MEDS: INSULIN ASPART (*BKC) 100 UNITS/ML SUB-Q (12:28)
[2020-07-12 14:00] VITALS: BP 130/61; PULSE 60; RESP 18; TEMP 36.1; O2SAT 100
[2020-07-12 16:55] LABS: Glucose Point of Care 163 (65-105)
[2020-07-12 20:10] VITALS: BP 136/66; PULSE 62; RESP 18; TEMP 36.8; O2SAT 99
[2020-07-12 20:55] VITALS: PULSE 64
[2020-07-12] MEDS: INSULIN GLARGINE (*BKC) 100 UNITS/ML 44 UNITS SUB-Q (20:57)
[2020-07-12 21:52] LABS: Glucose Point of Care 179 (65-105)
[2020-07-13 05:18] VITALS: BP 139/66; PULSE 58; RESP 18; TEMP 37.2; O2SAT 98
[2020-07-13] MEDS: hydrALAZINE 10 MG TABLET PO ×3 (05:53→21:12)
[2020-07-13] MEDS: polyethylene glycoL 3350 17 GM POWD.PACK PO ×2 (05:53→17:34)
[2020-07-13 06:15] LABS: Glucose Point of Care 122 (65-105)
[2020-07-13] MEDS: LOSARTAN POTASSIUM 100 MG TABLET PO (09:17)
[2020-07-13] MEDS: DOCUSATE SODIUM 100 MG CAPSULE PO ×2 (09:17→21:12)
[2020-07-13 09:18] VITALS: PULSE 62
[2020-07-13] MEDS: carvediloL 3.125 MG TABLET PO ×2 (09:18→21:12)
[2020-07-13] MEDS: ATORVASTATIN 40 MG TABLET PO (09:18)
[2020-07-13] MEDS: FAMOTIDINE 20 MG TABLET PO ×2 (09:18→21:12)
[2020-07-13] MEDS: ASPIRIN 81 MG CHEWABLE TABLET PO (09:18)
[2020-07-13] MEDS: amLODIPine BESYLATE 5 MG TABLET PO (09:18)
--- NOTE | 2020-07-13 11:28 | WPDNEURORHBP ---
Subjective Date/time seen: 07/13/20 11:28 Interval history: patient voices no complaints. Patient denies any pain. Review of Systems Review of Systems: All systems reviewed & are unremarkable except as noted in HPI and below Functional Status Ambulation Ability Ability to Ambulate 10 Feet: Independent Ability to Ambulate 50 Feet With 2 Turns: Independent Ambulation Assistive Devices: Walker, Wheeled Transfers Ability Ability to Transfer In/Out of Chair: Minimum Assistance X 1 Exam Narrative: Exam Narrative: Patient is seen during physical therapy. Patient is in no acute distress. Head is normocephalic. Extraocular muscles are intact. Heart rate and rhythm is regular. Lungs are clear to auscultation. Bilateral upper extremity strength are 5/5 left lower extremity strength is 4+ out of 5 Patient is progressing nicely with all therapies. Objective Data Vital Signs Vital Signs: Vital Signs - 24 hr 07/12/20 14:00 07/12/20 20:10 07/12/20 20:55 Temperature 36.1 C L 36.8 C Pulse Rate 60 62 64 Respiratory Rate 18 18 Blood Pressure 130/61 136/66 Pulse Oximetry 100 99 07/13/20 05:18 07/13/20 09:18 Temperature 37.2 C Pulse Rate 58 L 62 Respiratory Rate 18 Blood Pressure 139/66 Pulse Oximetry 98 Intake/Output Intake/Output: Intake & Output 07/10/20 07/11/20 07/12/20 07/13/20 23:59 23:59 23:59 23:59 Intake Total 1200 720 840 240 Balance 1200 720 840 240 Meds/Results Medications: Active Medications Generic Name Dose Route Start Last Admin Trade Name Kevonq PRN Reason Stop Dose Admin Hydrocodone Bitart/Acetaminophen 1 tab 07/07/20 17:52 07/07/20 18:17 Hydrocodone/Acetaminophen (*Crx) 5-325 Mg Tablet PO 1 tab Q4H PRN Administration Pain (Scale Score 4-6) Amlodipine Besylate 5 mg 07/08/20 09:00 07/13/20 09:18 Amlodipine Besylate 5 Mg Tablet PO 5 mg DAILY KATYA Administration Aspirin 81 mg 07/08/20 09:00 07/13/20 09:18 Aspirin 81 Mg Chewable Tablet PO 81 mg DAILY KATYA Administration Atorvastatin Calcium 40 mg 07/08/20 09:00 07/13/20 09:18 Atorvastatin 40 Mg Tablet PO 40 mg DAILY KATYA Administration Carvedilol 3.125 mg 07/07/20 21:00 07/13/20 09:18 Carvedilol 3.125 Mg Tablet PO 3.125 mg Q12H KATYA Administration Dextrose 12.5 gm 07/07/20 17:49 Dextrose 50% 25 Gm/50 Ml Syringe IV PUSH PRN PRN Hypoglycemia Protocol Docusate Sodium 100 mg 07/07/20 21:00 07/13/20 09:17 Docusate Sodium 100 Mg Capsule PO 100 mg Q12HR KATYA Administration Famotidine 20 mg 07/07/20 21:00 07/13/20 09:18 Famotidine 20 Mg Tablet PO 20 mg Q12H KATYA Administration Glucagon 1 mg 07/07/20 17:49 Glucagon For Inj 1 Mg Vial IM PRN PRN Hypoglycemia Protocol Glucose 15 gm 07/07/20 17:49 Glucose Oral Gel 15 Gm Of Glucse In 37.5 Gm Tube PO PRN PRN Hypoglycemia Protocol Hydralazine HCl 10 mg 07/07/20 22:00 07/13/20 05:53 Hydralazine 10 Mg Tablet PO 10 mg Q8H KATYA Administration Dextrose 1,000 mls @ 100 mls/hr 07/07/20 17:49 Dextrose 5% 1,000 Ml IVPB PRN PRN Hypoglycemia Protocol Insulin Aspart 2 - 5 units 07/08/20 08:00 07/12/20 17:12 Insulin Aspart (*Bkc) 100 Units/Ml SUB-Q Not Given TIDWM KATYA Protocol Insulin Glargine 44 units 07/10/20 21:00 07/12/20 20:57 Insulin Glargine (*Bkc) 100 Units/Ml SUB-Q 44 units HS KATYA Administration Losartan Potassium 100 mg 07/08/20 09:00 07/13/20 09:17 Losartan Potassium 100 Mg Tablet PO 100 mg DAILY KATYA Administration Polyethylene Glycol 17 gm 07/09/20 18:00 07/13/20 05:53 Polyethylene Glycol 3350 17 Gm Powd.Pack PO 17 gm Q12H KATYA Administration Labs Labs: Laboratory Results - last 24 hr 07/12/20 07/12/20 07/12/20 12:17 16:47 21:01 POC Capillary Glucose 217 H 163 H 179 H 07/13/20 05:56 POC Capillary Glucose 122 H Progress Note: A&P Assessme
[2020-07-13 11:56] LABS: Glucose Point of Care 205 (65-105)
[2020-07-13] MEDS: INSULIN ASPART (*BKC) 100 UNITS/ML SUB-Q ×3 (12:46→17:34)
[2020-07-13 14:00] VITALS: BP 137/64; PULSE 60; RESP 18; TEMP 36.2; O2SAT 97
[2020-07-13 17:08] LABS: Glucose Point of Care 158 (65-105)
[2020-07-13 20:10] VITALS: PULSE 82; RESP 18; O2SAT 98
[2020-07-13 20:19] VITALS: BP 133/68; PULSE 61; RESP 18; TEMP 36.3; O2SAT 98
[2020-07-13 21:12] VITALS: PULSE 82
[2020-07-13] MEDS: INSULIN GLARGINE (*BKC) 100 UNITS/ML 44 UNITS SUB-Q (21:21)
[2020-07-13 21:36] LABS: Glucose Point of Care 180 (65-105)
[2020-07-14 05:18] VITALS: BP 137/55; PULSE 59; RESP 18; TEMP 36.8; O2SAT 100
[2020-07-14] MEDS: polyethylene glycoL 3350 17 GM POWD.PACK PO (06:32)
[2020-07-14] MEDS: hydrALAZINE 10 MG TABLET PO (06:32)
[2020-07-14 06:52] LABS: Glucose Point of Care 120 (65-105)
[2020-07-14 08:55] VITALS: PULSE 59
[2020-07-14] MEDS: ASPIRIN 81 MG CHEWABLE TABLET PO (08:55)
[2020-07-14] MEDS: carvediloL 3.125 MG TABLET PO (08:55)
[2020-07-14] MEDS: DOCUSATE SODIUM 100 MG CAPSULE PO (08:55)
[2020-07-14] MEDS: LOSARTAN POTASSIUM 100 MG TABLET PO (08:55)
[2020-07-14] MEDS: amLODIPine BESYLATE 5 MG TABLET PO (08:55)
[2020-07-14] MEDS: FAMOTIDINE 20 MG TABLET PO (08:55)
[2020-07-14] MEDS: ATORVASTATIN 40 MG TABLET PO (08:55)
[2020-07-14] MEDS: INSULIN ASPART (*BKC) 100 UNITS/ML SUB-Q (08:57)
--- NOTE | 2020-07-14 11:15 | PM.DS ---
DS: Admitting Diagnosis Admitting Diagnosis Admitting Diagnosis: bilateral lacunar infarcts. Right below-knee amputation DS: Discharge Diagnosis Discharge Diagnosis (1) CVA (cerebral vascular accident): Code(s): I63.9 - Cerebral infarction, unspecified Status: Acute (2) Amputation of right lower extremity below knee: Code(s): S88.111A - Complete traumatic amputation at level between knee and ankle, right lower leg, initial encounter Status: Acute (3) Type 2 diabetes mellitus with hyperglycemia: Code(s): E11.65 - Type 2 diabetes mellitus with hyperglycemia Status: Acute (4) Essential (primary) hypertension: Code(s): I10 - Essential (primary) hypertension Status: Acute (5) Pure hypercholesterolemia: Code(s): E78.00 - Pure hypercholesterolemia, unspecified Status: Acute (6) Peripheral vascular disease: Code(s): I73.9 - Peripheral vascular disease, unspecified Status: Acute (7) Anemia: Code(s): D64.9 - Anemia, unspecified Status: Acute (8) Dysarthria: Code(s): R47.1 - Dysarthria and anarthria Status: Acute (9) Diastolic congestive heart failure: Code(s): I50.30 - Unspecified diastolic (congestive) heart failure Status: Acute (10) Diabetic neuropathy: Code(s): E11.40 - Type 2 diabetes mellitus with diabetic neuropathy, unspecified Status: Acute (11) Sleep apnea: Code(s): G47.30 - Sleep apnea, unspecified Status: Acute (12) Hypertension: Code(s): I10 - Essential (primary) hypertension Status: Acute DS: Summary Hospital Course Hospital Course: See dictation Time Spent with Patient Time attestation: Total time spent providing and/or coordinating discharge services: [age]-year-old gentleman with past medical history of hypertension diabetes with neuropathy, sleep apnea, diastolic congestive heart failure, osteomyelitis of the right foot has severe peripheral vascular disease with right below-knee amputation. Patient was admitted to [facility] on 06/22/2020 for right lower extremity peripheral vascular disease. Patient underwent a right below-knee amputation. His hospital course was complicated by an NSTEMI, AND A STROKE. MRI OF THE BRAIN DEMONSTRATED BILATERAL ACUTE LACUNAR INFARCTS. PATIENT WAS PLACED ON ASPIRIN PLAVIX AND ADDED A STATIN. PATIENT WAS THEN TRANSFERRED TO [facility] ON 07/07/2020 AND IS BEING DISCHARGED ON 07/14/2020. Rehab hospital course. Diabetes: Patient did require adjustments to medication. Patient currently on Lantus 44 units subcu q.h.s. and 5 units Novolog t.i.d. with meals. Incision; Incision shows good approximation minimal erythema noted. Essentially minimal to no drainage was present throughout hospital stay. HTN allowed for permissive parameters in light of CVA Systolic 140-130 with diastolic in the 60s Rehab: patient was at min assist on admission. At time of discharge patient was modified independent using a front wheel walker for ADLs transfers and gait ADMISSION FUNCTION: Eating independent Oral Care substantial assistance Toileting Hygiene partial assistance Shower/Bathing substantial assistance Upper Body Dressing supervision Lower Body Dressing substantial assistance Donning/[place] Footwear substantial assistance Rolling Left and Right supervision Sit to Lying supervision Lying to Sitting supervision Sit to Stand partial assistance Bed to Chair Transfers partial assistance Toilet Transfers partial assistance Car Transfers partial assistance Walking 10' partial assistance Walking 50' with Two Turns unable Walking 150' unable Curb or Step unable 4 Steps unable 12 Steps unable Picking Up Object unable Wheelchair Mobility 50' independent Wheelchair Mobility 150' supervision GOALS: Eating [INDEPENDENT] Oral Care [INDEPENDENT] Toileting Hygiene [INDEPENDENT] Shower/Bath
[2020-07-14 12:00] LABS: Glucose Point of Care 157 (65-105)
== END 2020-07-14 13:25 | disposition home or self-care (01) | DRG 57 ==
PROVIDERS: Admitting Provider Physical Medicine & Rehabilitation; PCP Registered Nurse; Visit Provider Physical Medicine & Rehabilitation
DX: I69.322 Dysarthria following cerebral infarction (principal); I50.30 Unspecified diastolic (congestive) heart failure; Z47.81 Encounter for orthopedic aftercare following surgical amputation; Z89.511 Acquired absence of right leg below knee; I69.392 Facial weakness following cerebral infarction; D64.9 Anemia, unspecified; E11.42 Type 2 diabetes mellitus with diabetic polyneuropathy; E11.319 Type 2 diabetes mellitus with unspecified diabetic retinopathy without macular edema; E11.51 Type 2 diabetes mellitus with diabetic peripheral angiopathy without gangrene; E78.5 Hyperlipidemia, unspecified; I11.0 Hypertensive heart disease with heart failure; G47.33 Obstructive sleep apnea (adult) (pediatric); R53.1 Weakness; Z79.4 Long term (current) use of insulin
CPT/HCPCS: 36415; 80048; 82948; 83036; 85025; 92507; 92523; 97110; 97116; 97162; 97165; 97530; 97535; 97542; A9270; J1815